=== PATIENT | male | born 1960 | race Caucasian/White ===

== ENCOUNTER → 2021-09-18 15:13 | Outpatient (BNVA) | payer OTHER, MEDICARE, SELFPAY | PROVIDERS: PCP Internal Medicine; Visit Provider Nurse Practitioner Family ==

== ENCOUNTER 2021-09-23 13:06 | Outpatient (REF) | payer OTHER, MEDICARE, SELFPAY ==
[2021-09-23 13:51] LABS: Hematocrit 42.6 % (42.0-52.0); Hemoglobin 13.7 g/dl (14.0-18.0); Mean Corpuscular HGB Conc 32.2 g/dl (31.0-36.0); Mean Corpuscular Hemoglobin 29.2 pg (27.0-33.0); Mean Corpuscular Volume 90.8 fL (80.0-98.0); Mean Platelet Volume 10.8 fL (9.4-12.4); Platelet Count 319 X10*3/uL (160-400); Red Blood Count 4.69 X10*6/uL (4.60-5.80); Red Cell Distribution Width 13.4 % (11.0-16.0)
[2021-09-23 14:33] LABS: Alanine Aminotransferase 65 U/L (0-40); Albumin Level 4.2 g/dL (3.5-5.0); Alkaline Phosphatase 61 U/L (39-117); Anion Gap 9 (12-20); Aspartate Amino Transferase 37 U/L (5-37); Bilirubin Total 0.4 mg/dL (0.0-1.0); Blood Urea Nitrogen 28 mg/dL (9-16); Calcium 9.6 mg/dL (8.4-10.2); Carbon Dioxide 30 mmol/L (22-29); Chloride 103 mmol/L (96-108); Estimated Glomerular Filt Rate > 60; Glucose Random 99 mg/dL (60-115); Potassium 5.4 mmol/L (3.3-5.1); Sodium 137 mmol/L (135-145); Total Protein 6.9 g/dL (6.5-8.0)
== END 2021-09-23 13:07 | disposition home or self-care (01) ==
LOC: HO.LAB 13:06
PROVIDERS: PCP Internal Medicine; Visit Provider Nurse Practitioner Family
DX: Z01.812 Encounter for preprocedural laboratory examination (principal)
CPT/HCPCS: 36415; 80053; 85027

== ENCOUNTER → 2021-10-22 15:45 | Outpatient (BNVA) | payer OTHER, MEDICARE, SELFPAY | PROVIDERS: PCP Internal Medicine; Visit Provider Nurse Practitioner Family ==

== ENCOUNTER 2022-06-17 11:47 | Day surgery (SDC) | payer OTHER, MEDICARE, SELFPAY ==
--- NOTE | 2022-05-19 12:54 | PC.NURSE ---
pt has covid cancelled self
--- NOTE | ~2022-06-17 | FL_ITS ---
EXAMINATION: XR FLUOROSCOPY WITH IMAGES CLINICAL INFORMATION: Pain. Right lumbar RFA. COMPARISON: None. TECHNIQUE: Fluoroscopy performed by Dr. Moshe Villafuerte. Fluoroscopy time: 1.0 minutes. Cumulative Dose: 56.2 mGy. DAP: 14.9 Gycm2. Images: 2. FINDINGS: There are needles/electrodes overlying the right outer L2, L3, and L4 neural foramen. There are mild degenerative changes with vertebral spurring. FL/FL guidance in OR IMPRESSION: Fluoroscopy for pain management procedures.
[2022-06-17 06:56] VITALS: BMI 36.9
--- NOTE | 2022-06-17 11:55 | P.HPSUR_ITS ---
Pre-Procedural Eval Section A Date of Service: 06/17/22 The patient is an INPATIENT: No Changes since office visit: Yes Changes in Medication The History & Physical has been completed within 30 days and I have reviewed it.: No Section B Chief Complaint: Right lumbar L2, L3, L4 Medial Branch Blocks RFA Relevant Family History (Specify if Yes): No Relevant Social History: None Present Medications: see Short Stay Collaborative assessment Medical History: No relevant PMH History of Previous Operations: No relevant previous surgery Allergies: Allergies Allergy/AdvReac Type Severity Reaction Status Date / Time Sulfa (Sulfonamide Allergy Unknown unk Verified 02/19/22 15:41 Antibiotics) Review of Systems Sugical H&P ROS: Negative: Cardiovascular, Respiratory, Neurological, Psychia tric, Hem-Onc, Allergic/Immunologic, Gastrointestinal, Genitourinary, Musculoskeletal, Integumentary, Endocrine and Eyes/Ears/Nose/Throat and Yes, Specify: Constitution (obesity) Exam Surgical H&P Exam: Normal: HEENT, Normal: Heart, Normal: Lungs, Normal: Extremities, Normal: Skin and Normal: Neurological and Significant Findings: Abdomen (enlarged 2 to fat.) Plan Diagnosis/Plan: Unchanged I have reviewed the history and physical and performed a pertinent physical examination on my patient. No changes have occurred unless specified.
[2022-06-17 12:21] VITALS: BP 149/72; PULSE 62; RESP 18; TEMP 36.1; O2SAT 98
[2022-06-17 13:38] VITALS: BP 146/76; PULSE 65; RESP 20; TEMP 36.1; O2SAT 98
--- NOTE | 2022-06-17 13:45 | W.PM.OPN ---
Operative Note Operative Note Date of Service: 06/17/22 Narrative: Radiofrequency ablation of L2-L3 L4 and lateral left medial branches. Informed consent was explained to the patient. All questions were explained and answered.? The patient was taken inside of the operating room where he was positioned prone on the operating table.? Time-out was performed delineating patient's name and date of , correct site, side, the nature of the procedure, patient's allergy, preoperative antibiotic if needed.? All operating room staff was participating in OR time-out procedure.? His lower back was prepped with ChloraPrep and draped with sterile towels.? Sterilely draped C-arm was brought over the operating field and sq picture of L3-L4 and L5 vertebrae was delineated on the screen.? Points of interest were delineated as connection of superior articular process of L3, L4, and L5 on the left with corresponding transverse processes .? The projection of the point of interest to the skin were injected with the small amount of local anesthetic lidocaine 2% 1-1.5 cc.? And after that 18 gauge 145 mm radiofrequency cannulas were driven to the point of interest in tunnel vision fashion under oblique view .? After needles gently contacted the bone at the point of interests the stylets were removed from the needles and electrodes were inserted into the needles.? Electrodes were connected to the radiofrequency machine and testing was performed for the patient's sensory and motor function.? There were no pathological motor response indicating stimulation of somatic nerves.? After that electrodes were removed and each needle was injected with small amount of ropivacaine 0.5% 1-1.5 cc mixed with trace amount of Kenalog.? Upon completion of the injections the electrodes were reinserted and energy of 89 degree centigrade for 90 seconds was applied to each needle 1st on the left side and then on the right.? Upon completion of the energy application the needles were rotated 180? and energy applied with the same temperature and with the same time.? Upon completion of the injections needles were removed and sterile dressings were applied patient was taken outside of the operating room to recovery room which he recovered uneventfully.?
== END 2022-06-17 14:01 | disposition home or self-care (01) ==
PROVIDERS: PCP Internal Medicine; Visit Provider Anesthesiology
PROC: (CPT 64635; principal; 2022-06-17 13:00)
DX: M47.816 Spondylosis without myelopathy or radiculopathy, lumbar region (principal); M62.838 Other muscle spasm; M47.27 Other spondylosis with radiculopathy, lumbosacral region; G83.4 Cauda equina syndrome; Z79.899 Other long term (current) drug therapy; Z88.2 Allergy status to sulfonamides
CPT/HCPCS: 64635; 64636; J3300

== ENCOUNTER 2023-08-18 15:15 | Outpatient (AMB) | payer OTHER, SELFPAY ==
--- NOTE | 2023-08-18 15:17 | A.OFFVIS_ITS ---
Intake Vital Signs 08/18/23 15:19 Height 5 ft 7 in Weight 285 lb BMI 44.6 Blood Pressure Location Lt brachial Position Sitting Respiration 16 Pulse 76 Pulse Source Pulse Oximeter Pulse Oximetry (%) 97 Oxygen Delivery Method Room Air Intake Visit Reasons: Medication Discussion/lvm Allergies Sulfa (Sulfonamide Antibiotics) Allergy (Unknown, Verified 08/18/23 15:21) unk shellfish derived Adverse Reaction (Intermediate, Verified 08/18/23 15:21) rash Medication List - Last Reconciled 08/18/23 by Jenna Drew LPN baclofen 20 mg (2 x 10 mg) PO QPM fluoxetine 10 mg PO DAILY gabapentin 400 mg PO QID 30 days lorazepam 2 mg PO BID HPI HPI Comments History of Present Illness Details Patient presents today for medication refill for baclofen. Patient reports good tolerance and no side effects when taking 20 mg at bedtime and finds decreased muscle spasms in his lower extremities, neck and lower back. He also reports ongoing bilateral knee pain. Unfortunately, knee xray order was cancelled. I will re-order these xrays today prior further steps for his knee pain treatments. Denies any recent cough, cold, infection, fever or other significant changes in medical history since last office visit. PRIOR: Patient presents today via telehealth encounter to assess response to Right L2-L3-L4 MB RFA on 06/17/[address] Villafuerte. Patient reports 70% ongoing pain relief since the procedure with significant improvement in his daily functioning, mobility, and social interactions. He now reports bilateral knee pain with bending and climbing stairs which he attributes to arthritis. Patient reports remote history of cortisone injections with good relief. He is interested to discuss longer term pain relief in the next office visit for physical exam. I will send him for bilateral knee xray. PRIOR: Lucio presents to the office with for evaluation of low back pain. He is accompanied by his . He reports a long history of back pain and is s/p emergency surgery for cauda equina syndrome in 2014, performed by Dr. Cortez. He reports residual bowel/bladder dysfunction as well as neuropathy throughout the lower extremities and radicular pain of the RLE. He is under the care of urology. He also reports at night his legs start flailing and was told by neurosurgery this was neuropathic in nature. He denies any EMG/NCS. He has a sleep study scheduled in attempts to address this. He has a CPAP and is complaint. Most recently, he underwent cervical surgery with Dr. Cortez in 2020. He reports significant weakness of LUE which resolved after surgery but continues to have a stiff, sore neck . He has been under the care of Dr. Tripp at [facility] where has had RFA with significant alleviation in his pain as well as medical management with non-opioid medications. He reports 1-1.5 years of pain relief with the RFA. He reports good relief with his current regimen and is hoping to continue it through this office. He is currently managed on gabapentin 400 mg QID, Baclofen 20 mg BID and Lamictal 100 mg BID, which has been helpful for the past 2-3 year s. He denies any lab work recently to assess CBC/CMP. He reports with this regimen his pain is tolerable and averages 2-3/10. Although he reports if he is active his pain can increase to an 8/10. He also has been working towards weight loss through diet and exercise. He has lost a total of 63 pounds. He denies any recent imaging. [facility] Medical History (Updated 08/18/23 @ 16:28 by EDGARDO Toro) Bilateral knee pain Muscle spasm Cauda equina syndrome with neurogenic bladder Lumbar facet arthropathy Periodic limb movement disorder (PLMD) Neurogenic bladder Spondylosis of lumbosacral spine with radiculopathy Review of Systems Const All systems reviewed & are unremarkable except as noted in HPI and below Physical Exam Vital Signs: Last Vital Signs Pulse 76 08/18/23 15:19 Resp 16 08/18/23 15:19 Pulse Ox 97 08/18/23 15:19 Oxygen Delivery Method Room Air 08/18/23 15:19 BMI result Body Mass Index 44.6 General: Appears afebrile. Alert and oriented. Mood and affect appropriate. Follows and participates in conversation appropriately. Respiratory effort is unlabored. No cough. No nasal discharge. Able to transition from sit to stand unassisted. Ambulates with assistance of cane. Extrem General: Yes capillary refill normal, Yes no clubbing, cyanosis or edema and Yes no calf tenderness Right lower extremity: knee (Anterior global knee pain. Limited ROM due to pain) Details: normal to inspection, tenderness Location: of the patella, of the medial joint line and of the lateral joint line and crepitus; no swelling, no ecchymosis and no unusual warmth Left lower extremity: knee Details: normal to inspection, tenderness Location: of the medial joint line and of the lateral joint line and crepitus; no swelling, no ecchymosis and no unusual warmth Psych Appearance: grossly normal Mental Status: mental status grossly normal Speech and movement: Normal speech and movement present Affect: normal affect Attitude: cooperative Thought process: Normal thought process present Thought content: Normal thought content present, suicidality (none), no hallucinations and No Depressive thoughts present Insight: Good insight present (Psych) Judgement: Good judgement present (Psych) Assessment & Plan Assessment & Plan (1) Bilateral knee pain: Code(s): M25.561 - Pain in right knee; M25.562 - Pain in left knee (2) Lumbar facet arthropathy: Code(s): M47.816 - Spondylosis without myelopathy or radiculopathy, lumbar region (3) Spondylosis of lumbosacral spine with radiculopathy: Code(s): M47.27 - Other spondylosis with radiculopathy, lumbosacral region (4) Muscle spasm: Code(s): M62.838 - Other muscle spasm Plan 1. Refills provided for baclofen and gabapentin. 2. Will reorder bilateral knee x-rays to assess degree of arthritis. Patient reports remote history of cortisone injections with good relief. He is interested to discuss longer term pain relief modalities after knee x-rays are completed. All questions were answered and patient agreed with the plan. Follow up for xray results and sooner if needed. Orders: Orders XR knee RT 3V Today M25.561 - Pain in right knee, M25.562 - Pain in left knee XR knee LT 3V Today M25.561 - Pain in right knee, M25.562 - Pain in left knee Medications: Refilled baclofen 20 mg (2 x 10 mg) PO QPM 60 tabs 4RF gabapentin 400 mg PO QID 30 days 120 caps 4RF pain M25.561 - Pain in right knee, M25.562 - Pain in left knee, M47.27 - Other spondylosis with radiculopathy, lumbosacral region, M47.816 - Spondylosis without myelopathy or radiculopathy, lumbar region Coding Level of Care Code Est Pt Level 4 (69778) Diagnoses Bilateral knee pain M25.561; M25.562 Lumbar facet arthropathy M47.816 Spondylosis of lumbosacral spine with radiculopathy M47.27 Muscle spasm M62.838
[2023-08-18 15:19] VITALS: PULSE 76; RESP 16; O2SAT 97; BMI 44.6
== END 2023-08-18 16:00 | disposition home or self-care (01) ==
PROVIDERS: PCP Internal Medicine; Visit Provider Nurse Practitioner Family
DX: M25.561 Pain in right knee (principal); M25.562 Pain in left knee; M47.816 Spondylosis without myelopathy or radiculopathy, lumbar region; M47.27 Other spondylosis with radiculopathy, lumbosacral region; M62.838 Other muscle spasm
CPT/HCPCS: 99214

== ENCOUNTER 2023-08-18 15:15 | Outpatient (REF) | payer OTHER, MEDICARE, SELFPAY | END 2023-08-18 15:16 | disposition home or self-care (01) | LOC: HO.XRAY 15:15 | PROVIDERS: PCP Internal Medicine; Visit Provider Nurse Practitioner Family | DX: M25.561 Pain in right knee (principal); M25.562 Pain in left knee; M47.816 Spondylosis without myelopathy or radiculopathy, lumbar region; M47.27 Other spondylosis with radiculopathy, lumbosacral region; M62.838 Other muscle spasm | CPT/HCPCS: 73562 ==

== ENCOUNTER 2024-09-19 15:07 | Outpatient (AMB) | payer OTHER, SELFPAY ==
--- NOTE | 2024-09-19 15:09 | A.OFFVIS_ITS ---
Vital Signs 3 09/19/24 15:12 Height 5 ft 7 in Weight 261 lb BMI 40.9 BP 137/75 Blood Pressure Location Lt brachial Position Sitting Respiration 18 Pulse 74 Pulse Source Pulse Oximeter Pulse Oximetry (%) 98 Oxygen Delivery Method Room Air Intake Visit Reasons: FU for medication refill Allergies Sulfa (Sulfonamide Antibiotics) Allergy (Unknown, Verified 08/18/23 15:21) unk shellfish derived Adverse Reaction (Intermediate, Verified 08/18/23 15:21) rash Medication List - Last Reconciled 09/19/24 by EDGARDO Toro baclofen 20 mg (2 x 10 mg) PO QPM fluoxetine 10 mg PO DAILY gabapentin 400 mg PO QID 30 days lorazepam 2 mg PO BID semaglutide (weight loss) (Wegovy) 1 mg subcut QWEEK HPI Comments Details: Patient presents today for follow up and for medication refill for baclofen and gabapentin. He was last seen in our office last year. Reports chronic low back pain and bilateral knee pain which have been managed conservatively and current medications provide him adequate relief without any side effects. He has started Wegovy injections last year and last 24 lbs since last office visit. He continues diet and exercise. Patient reports remote history of cortisone injections with good relief. He states his pain generators have been well managed without interventional treatments at this time. Denies any recent cough, cold, infection, fever or any other significant changes in medical history since last office visit. Past Procedures: 06/17/22: Right L2-L3-L3 Medial Branch RFA-70% pain relief for ~2 years PRIOR: Lucio presents to the office with for evaluation of low back pain. He is accompanied by his . He reports a long history of back pain and is s/p emergency surgery for cauda equina syndrome in 2014, performed by Dr. Cortez. He reports residual bowel/bladder dysfunction as well as neuropathy throughout the lower extremities and radicular pain of the RLE. He is under the care of urology. He also reports at night his legs start flailing and was told by neurosurgery this was neuropathic in nature. He denies any EMG/NCS. He has a sleep study scheduled in attempts to address this. He has a CPAP and is complaint. Most recently, he underwent cervical surgery with Dr. Cortez in 2019. He reports significant weakness of LUE which resolved after surgery but continues to have a stiff, sore neck . He has been under the care of Dr. Tripp at [facility] where has had RFA with significant alleviation in his pain as well as medical management with non-opioid medications. He reports 1-1.5 years of pain relief with the RFA. He reports good relief with his current regimen and is hoping to continue it through this office. He is currently managed on gabapentin 400 mg QID, Baclofen 20 mg BID and Lamictal 100 mg BID, which has been helpful for the past 2-3 years. He denies any lab work recently to assess CBC/CMP. He reports with this regimen his pain is tolerable and averages 2-3/10. Although he reports if he is active his pain can increase to an 8/10. He also has been working towards weight loss through diet and exercise. He has lost a total of 63 pounds. He denies any recent imaging. [facility] Medical History Bilateral knee pain Muscle spasm Cauda equina syndrome with neurogenic bladder Lumbar facet arthropathy Periodic limb movement disorder (PLMD) Neurogenic bladder Spondylosis of lumbosacral spine with radiculopathy Review of Systems Const All systems reviewed & are unremarkable except as noted in HPI and below Physical Exam Vital Signs: Last Vital Signs Pulse 74 09/19/24 15:12 Resp 18 09/19/24 15:12 BP 137/75 09/19/24 15:12 Pulse Ox 98 09/19/24 15:12 Oxygen Delivery Method Room Air 09/19/24 15:12 BMI result Body Mass Index 40.9 General: Appears afebrile. Alert and oriented. Mood and affect appropriate. Follows and participates in conversation appropriately. Respiratory effort is unlabored. No cough. Able to transition from sit to stand unassisted. Ambulates with assistance of cane. Extrem General: Yes capillary refill normal, Yes no clubbing, cyanosis or edema and Yes no calf tenderness Results Reviewed Results Reviewed: XR BILATERAL KNEES 08/18/23 CLINICAL INFORMATION: Bilateral knee pain. FINDINGS: LEFT KNEE: Trace joint effusion present. Mild degenerative changes with hypertrophic change in the patellofemoral joint. Moderate to marked medial joint space narrowing with hypertrophic change. RIGHT KNEE: No significant joint effusion. Mild degenerative changes in the patellofemoral joint. Mild medial joint space narrowing. IMPRESSION: [id number] degenerative changes in the bilateral knees, left greater than right. Assessment & Plan Assessment & Plan (1) Muscle spasm: Code(s): M62.838 - Other muscle spasm Category: Medical (2) Bilateral knee pain: Code(s): M25.561 - Pain in right knee; M25.562 - Pain in left knee Category: Medical (3) Lumbar facet arthropathy: Code(s): M47.816 - Spondylosis without myelopathy or radiculopathy, lumbar region Category: Medical (4) Osteoarthritis of knees, bilateral: Code(s): M17.0 - Bilateral primary osteoarthritis of knee Category: Medical Plan 1. Refills provided for baclofen and gabapentin. Continue to monitor for any side effects. 2. Discussed bilateral knee xrays noted for [id number] degenerative changes in the bilateral knees, left greater than right. Patient reports bilateral knee pain has been minimal and well managed with current medication regime, activity modifications, weight loss, diet and exercise. All questions were answered and patient agreed with the plan. Follow up as needed. Medications: Refilled 2 baclofen 20 mg (2 x 10 mg) PO QPM 180 tabs 6RF muscle spasms M62.838 - Other muscle spasm gabapentin 400 mg PO QID 30 days 120 caps 6RF pain M25.561 - Pain in right knee, M25.562 - Pain in left knee, M47.27 - Other spondylosis with radiculopathy, lumbosacral region, M47.816 - Spondylosis without myelopathy or radiculopathy, lumbar region Coding Level of Care Code Est Pt Level 4 (90978) Complex EM visit Add On G2211 Diagnoses Muscle spasm M62.838 Bilateral knee pain M25.561; M25.562 Lumbar facet arthropathy M47.816 Osteoarthritis of knees, bilateral M17.0
[2024-09-19 15:12] VITALS: BP 137/75; PULSE 74; RESP 18; O2SAT 98; BMI 40.9
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
--- OUTSIDE RECORDS SUMMARY | 2024-09-19 16:37 | XMS_ITS | Data Portability ---
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 Plan of Treatment Reminders Order Date Submit Date Provider Last Modified By Organization Details Last Modified Time Details Appointments None recorded. Lab None recorded. Referral None recorded. Procedures medial branch block, lumbar (PROC) - Rt L2,3,4 FMBB with 2 % lidocaine. 2020 021 [facility], [address] [place] [address], [address], 2 05:00:44 lumbar radiofreque ncy lesioning (PROC) 2020 021 [facility], [address] [facility], [address], [address], 2 05:00:45 Surgeries None recorded. Imaging None recorded. Medication Orders baclofen 10 mg tablet 2020 021 [facility] #[id number], [address] [place], [address], 15:26:15 gabapentin 400 mg capsule 2020 021 [facility] #1157, [address] [place], [address], 1 15:26:15 Lamictal 100 mg tablet 2020 021 dmousad [facility]armacy #1157, [address] [place], [address], 15:45:09 baclofen 10 mg tablet 2020 021 [facility] #1157, [address] [place], [address], 16:04:18 gabapentin 400 mg capsule 2020 [facility] #1157, [address] [place], [address], 16:04:16 Lamictal 100 mg tablet 2020 021 [facility]1157, [address] [place], [address], 16:04:16 Patient Targets Encounter Date Encounter Id Patient Goals Patient Target Last Modified By Organization Details Last Modified Time 02/01/2021 [id number] long-term goal o f Pain Scale Not available Not available Not available long-term goal o f Weight 160 lbs Not available Not available Not available decrease painincrease activitiesimprove quality of lifeweight reduction [email or web address] Not available 02/01/2021 16:09:07 03/22/2021 [id number] 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 Not available Not available Not available long-term goal o f Weight 155 lbs Not available Not available Not available decrease painincrease activitiesimprove quality of lifeweight reduction [email or web address] Not available 03/22/2021 15:50:41 06/14/2021 [id number] 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 Not available Not available Not available 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 goal o f Weight 155 lbs Not available Not available Not available decrease painincrease activitiesimprove quality of lifeweight reduction dmousad Not available 06/14/2021 16:46:11 Patient Instructions Encounter Date Encounter Id Patient Instructions Last Modified By Organization Details Last Modified Time 02/01/2021 [id number] Given [email or web address] Not available 02/01 16:12:14 Given dmousad Not available 2020 16:12:19 03/22/2021 [id number] Given dmousad Not available 03/22 15:50:48 Given dmousad Not available 2020 15:50:52 06/14/2021 [id number] Given dmousad Not available 06/14 16:46:16 Given dmousad Not available 2020 16:46:21 Reason for Referral None Reported. Problems Name Problem SNOMED Code Status Onset Date Resolution Date Notes Provider Name and Address Organization Details Recorded Time Cauda equina syndrome 758697732 Active 2018 with neurogenic bladder Not Available [facility] 23:09:01 Urinary incontine nce 413697218 Active 2018 Not Available [facility] 23:09:01 Obsessive -compulsi ve disorder 239427166 Active 2018 Not Available [facility] 23:09:01 Neuropath ic pain 628148197 Active 2018 Not Available [facility] 1 23:09:01 Morbid obesity 318822319 Active 2018 Not Available [facility] 1 23:09:01 Apraxia 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 Procedures Surgical History Date Name Laterality Status Provider Name and Address Organization Details Recorded Time 04/17/20 21 Lumbar Facet RF Rhizotomy unber fluroscopy completed Hardik Tripp MD [address] [place] [address], [phone], [facility], [facility] 04/17/2021 15:55:13 03/01/20 21 Lumbar Facet MBB with 2% Lidocaine under fluroscopy completed Hardik Tripp MD [address] [place] [address], [phone], [facility], [facility] 03/01/2021 18:56:52 08/13/20 19 Lumbar Facet RF Rhizotomy unber fluroscopy completed Hardik Tripp MD [address] [place] [address], [phone], [facility], [facility] 08/13/2019 18:15:03 07/21/20 19 Lumbar Facet MBB with 2% Lidocaine under fluroscopy completed Hardik Tripp MD [address] [place] [address],[address], [place], [phone], [facility], [facility] 07/21/2019 17:23:58 Unlisted px femur/knee completed [facility], [facility] 05/14/2019 13:55:52 Appendectomy completed [facility], [facility] 05/14/2019 13:56:45 tonsillectomy completed [facility], [facility] 05/14/2019 13:57:01 procedure on nose completed [facility], [facility] 05/14/2019 13:57:28 procedure on spine completed [facility], [facility] 05/14/2019 13:57:39 Imaging Results None recorded. Procedure Notes None recorded. Medical Equipment None Reported. Allergies Allergen ID Allergen Name Allergen Category Reaction Reaction Severity Criticality Documentation Date Start Date Code Code System Note Provider Name and Address Organization Details Recorded Time 733 Substance with sulfonami de structure and antibacte rial mechanism of action (substanc e) medicatio n Not available Not available Not available 05/03/2019 31223 8003 SNOMED aquilino saleem [facility], [facility] 9 14:34:08 734 shellfish derived food,medi cation Not available Not available Not available 05/03/2019 32584 UNK aquilino saleem [facility], [facility] 9 14:34:18 Medications Name Sig Start Date Stop Date Status Note LastModified by Organization Details LastModified Time cyclobenzap rine 10 mg tablet active Not Available Not Available Not Available amoxicillin 500 mg capsule 05/14 completed Not Available Not Available Not Available lamotrigine 150 mg tablet 06/14 completed Not Available Not Available Not Available lamotrigine 200 mg tablet 05/14 completed Not Available Not Available Not Available tizanidine 4 mg tablet active Not Available Not Available Not Available hydrocodone 5 mg-acetamin ophen 325 mg tablet 05/14 completed Not Available Not Available Not Available gabapentin 400 mg capsule Take 1 capsule 4 times a day by oral route as directed for 28 days. active Not Available Not Available No t Available ropinirole 0.25 mg tablet 05/14 completed Not Available Not Available Not Available lorazepam 2 mg tablet TAKE 1 TABLET BY MOUTH TWICE A DAY active Not Available Not Available No t Available baclofen 10 mg tablet Take 2 tablets every day by oral route in the evening for 28 days. 2021 active Not Available Not Available Not Avai lable cephalexin 500 mg capsule 06/14 completed Not Available Not Available Not Available fluoxetine 20 mg tablet TAKE 1 TABLET BY MOUTH EVERY DAY active Not Available Not Available No t Available Lamictal 100 mg tablet Take 1 tablet twice a day by oral route as directed for 28 days. 2021 active Not Available Not Available Not Avai lable gabapentin 300 mg capsule 02/01 completed Not Available Not Available Not Available methylpredn isolone 4 mg tablets in a dose pack 06/14 completed Not Available Not Available Not Available ketoconazol e 2 % topical cream active Not Available Not Available Not Available naproxen 500 mg tablet 05/14 completed Not Available Not Available Not Available oxycodone 5 mg tablet 02/01 completed Not Available Not Available Not Available B-12 1,000 mcg tablet Take by oral route. active Not Available Not Available No t Available calcium active Not Available Not Avail able Not Available vitamin E active Not Available Not Kelsie ilable Not Available Advil active Not Available Not Availa ble Not Available Tylenol active Not Available Not Avail able Not Available [place] 3 active Not Available Not Avail able Not Available diclofenac 1 % topical gel APPLY 2 GRAMS TO THE AFFECTED AREA(S) BY TOPICAL ROUTE 4 TIMES PER DAY active Not Available Not Available No t Available Vitamin D-3 with Aloe 120 mg-1,000 unit-10 mg tablet Take by oral route. active Not Available Not Available No t Available Super B Maxi Complex active Not Available Not Available Not Available Triple Magnesium Complex active Not Available Not Available Not Available Shingrix (PF) 50 mcg/0.5 mL intramuscul ar suspension, kit active Not Available Not Available Not Available Flucelvax Quad (PF) 60 mcg (15 mcg x 4)/0.5 mL IM syringe 05/14 completed Not Available Not Available Not Available Fluzone Quad (PF) 60 mcg (15 mcg x 4)/0.5 mL IM syringe 02/01 completed Not Available Not Available Not Available Fluzone Quad (PF) 60 mcg (15 mcg x 4)/0.5 mL IM syringe [facility]ARMACY [facility] 02/01 completed Not Available Not Available Not Available Flublok Quad (PF) 180 mcg (45 mcg x 4)/0.5 mL IM syringe 02/01 completed Not Available Not Available Not Available Vitals Date Recorded Body height Body temperature Provider N radha and Address Organization Details Last Updated DateTime 02/01/2021 170.18 cm 97.5 [degF] [facility] 02/01/2021 15:42:07 Date Recorded Heart rate Respiratory rate Heart rate Oxygen saturation Oxygen saturation in Arterial blood by Pulse oximetry Body mass index (BMI) Body weight Systolic blood pressure Diastolic blood pressure Provider Name and Address Organization Details Last Updated DateTime 1 84 /min 18 /min 84 /min 96 % 96 % 48.3 kg/m2 656828. 25 g 132 mm[Hg] 83 mm[Hg] Alanviktor johnson [facility], [facility] 1 15:46:01 Date Recorded Body height Body temperature Provider N radha and Address Organization Details Last Updated DateTime 03/01/2021 170.18 cm 98.5 [degF] [facility], [facility] 03/01/2021 13:21:42 Date Recorded Body height Body temperature Provider N radha and Address Organization Details Last Updated DateTime 03/22/2021 170.18 cm 96.7 [degF] [facility], [facility] 03/22/2021 15:06:31 Date Recorded Body mass index (BMI) Body weight Heart rate Respiratory rate Heart rate Oxygen saturation Oxygen saturation in Arterial blood by Pulse oximetry Systolic blood pressure Diastolic blood pressure Provider Name and Address Organization Details Last Updated DateTime 1 45 kg/m2 153992. 01 g 75 /min 18 /min 75 /min 94 % 94 % 117 mm[Hg] 73 mm[Hg] Alan MalikLeoncio alex [facility], [facility] 1 15:11:37 Date Recorded Body height Body temperature Provider N radha and Address Organization Details Last Updated DateTime 04/17/2021 170.18 cm 98.1 [degF] Alan KingClementina [facility], [facility] 04/17/2021 13:57:11 Date Recorded Body height Body temperature Provider N radha and Address Organization Details Last Updated DateTime 06/14/2021 170.18 cm 98 [degF] Stacey Pryor [facility], [facility] 06/14/2021 15:43:32 Date Recorded Body mass index (BMI) Body weight Respiratory rate Heart rate Heart rate Oxygen saturation Oxygen saturation in Arterial blood by Pulse oximetry Systolic blood pressure Diastolic blood pressure Provider Name and Address Organization Details Last Updated DateTime 1 40.3 kg/m2 539544. 24 g 18 /min 68 /min 68 /min 95 % 95 % 135 mm[Hg] 79 mm[Hg] cinthia donaldson [facility], [facility] 1 15:51:03 Social History Question Answer Notes LastModified by Organizat ion Details LastModified Time Tobacco Smoking Status Former Smoker Not Available [facility] 06/19/2020 04:17:37 Do You Or Have You Ever Used E-cigarettes Or Vape? Former User Of Electronic Cigarettes [id number] Information not available 06/19/2020 Do You Or Have You Ever Used Smokeless Tobacco? Former Smokeless Tobacco User [id number] Information not available 06/19/2020 How Much Tobacco Do You Smoke? 1 PPD [id number] Information not available 06/19/2020 How Many Years Have You Smoked Tobacco? 6 [id number] Information not available 06/19/2020 Sex: Unknown Functional Status None recorded. Mental Status None recorded. Family History Nothing Reported. Medical History Condition Response Coronary Artery Disease N Gout N Head Trauma/Injury Y Hernia N Thyroid Problems N Depression Y COPD N Anemia N Ulcers N Heart Attack (NV) N Diabetes N Anxiety Disorder Y Bleeding Disorder N Arthritis Y Tuberculosis N AIDS/HIV N Acid Reflux (GERD) N Cancer N Stroke N Asthma N Substance Abuse N Back Injury Y High Cholesterol N Hepatitis N Liver Disease N Heart Disease N Fibromyalgia N Headaches Y Hypertension N Osteoporosis N Kidney Disease N Past Encounters Encounter ID Performer Location Encounter Start Date Encounter Closed Date Diagnosis/Indication Diagnosis SNOMED-CT Code Diagnosis ICD10 Code Diagnosis Note 1952 Hardik Tripp MD Main Office [address] [place] [phone] 05/14/2019 13:17:39 05/15/2019 18:59:56 Long-term drug therapy 090886463 Z79.818 Lumbar radiculopathy 128 655465 M54.16 Spasm of back muscles 20 7254170 M62.830 Neuropathy 767237684 G62 .9 plan if possible to change it to Topamax in the future. Lumbosacra l radiculopathy 8120782 M54.17 MRI ordered, wating for the result. He will bring the MRI done 2014 and also the surgery and procedure notes. Continue Gabapentin and Lamotrigin e. Degenerati on of lumbar intervertebral disc 12381465 M51.36 Weight reduction HEP Obesity 875952595 E66.9 dietarian consult. weight reduction. [id number] Hardik Tripp MD Main Office [address] [place] [phone] 4 06/04/2019 13:57:52 06/04/2019 16:55:06 Lumbar radiculopathy 000663379 M54.16 HEP Weight reduction Spasm of back muscles 20 7555937 M62.830 HEP Neuropathy 328982263 G62 .9 plan if possible to change it to Topamax in the future. Lumbosacra l radiculopathy 8015121 M54.17 He will bring the surgery and procedure notes. Continue Gabapentin and Lamotrigin e. Degenerati on of lumbar intervertebral disc 35392473 M51.36 Weight reduction HEP Obesity 002232197 E66.9 dietarian consult. weight reduction. Lumbosacra l spondylosis without myelopathy 41422682 M47.817 Plan for right L2,3,4 FMBB with 2 % Lidocaine as a dxic test to confirm the dx of right lumbar facet sx. [id number] Hardik Tripp MD Main Office [address] [place] [id number] 4 07/02/2019 13:45:42 07/02/2019 16:38:11 Lumbar radiculopathy 890461201 M54.16 HEP Weight reduction Spasm of back muscles 20 6920879 M62.830 HEP Neuropathy 802487406 G62 .9 plan if possible to change it to Topamax in the future. Lumbosacra l radiculopathy 8968618 M54.17 He will bring the surgery and procedure notes. Continue Gabapentin and Lamotrigin e. Degenerati on of lumbar intervertebral disc 44844228 M51.36 Weight reduction HEP Obesity 641713452 E66.9 dietarian consult. weight reduction. Lumbosacra l spondylosis without myelopathy 19307292 M47.817 Plan for right L2,3,4 FMBB with 2 % Lidocaine as a dxic test to confirm the dx of right lumbar facet sx. [id number] Hardik Tripp MD Main Office [address] [place] [id number] 4 07/21/2019 17:15:40 07/21/2019 17:27:35 Lumbosacral spondylosis without myelopathy 30708639 M47.817 right L2,3,4 FMBB with 2 % Lidocaine as a dxic test to confirm the dx of right lumbar facet sx. [id number] Hardik Tripp MD Main Office [address] [place] [id number] 4 08/13/2019 11:09:46 08/13/2019 18:28:10 Lumbar radiculopathy 073416951 M54.16 HEP Weight reduction Spasm of back muscles 20 1184461 M62.830 HEP Neuropathy 985973503 G62 .9 plan if possible to change it to Topamax in the future. Lumbosacra l radiculopathy 6106930 M54.17 He will bring the surgery and procedure notes. Continue Gabapentin and Lamotrigin e. Degenerati on of lumbar intervertebral disc 78331797 M51.36 Weight reduction HEP Obesity 197606177 E66.9 dietarian consult. weight reduction. Lumbosacra l spondylosis without myelopathy 56169970 M47.817 right L2,3,4 RFR. Myofascial pain 27558064 9 M79.10 [id number] Hardik Tripp MD Main Office [address] [place] [address],[address] [place] [address] 09/24/2019 14:45:34 09/24/2019 17:38:57 Lumbar radiculopathy 342130517 M54.16 HEP Weight reduction Spasm of back muscles 20 5032627 M62.830 HEP Neuropathy 536451898 G62 .9 plan if possible to change it to Topamax in the future. Lumbosacra l radiculopathy 4343535 M54.17 Continue Gabapentin and Lamotrigin e. Degenerati on of lumbar intervertebral disc 13339226 M51.36 Weight reduction HEP Obesity 658199782 E66.9 dietarian consult. weight reduction. Lumbosacra l spondylosis without myelopathy 99908607 M47.817 HEP Myofascial pain 31439274 9 M79.10 HEP [id number] Hardik Tripp MD telemedic [address] [address] 11/26/2019 13:00:58 11/26/2019 13:28:42 Lumbar radiculopathy 646832882 M54.16 HEP Weight reduction Spasm of back muscles 20 9838731 M62.830 HEP Neuropathy 067045263 G62 .9 plan if possible to change it to Topamax in the future. Lumbosacra l radiculopathy 7388651 M54.17 Continue Gabapentin and Lamotrigin e. Degenerati on of lumbar intervertebral disc 98239311 M51.36 Weight reduction HEP Obesity 013517697 E66.9 dietarian consult. weight reduction. Lumbosacra l spondylosis without myelopathy 02662419 M47.817 HEP Cervical radiculopathy 84169752 M54.12 Plan to ask his PCP to order C-MRI . [id number] Hardik Tripp MD [facility] [address] [address] 02/24/2020 10:06:23 02/24/2020 12:35:38 Lumbar radiculopathy 693696182 M54.16 HEP Weight reduction Spasm of back muscles 20 5046690 M62.830 HEP Neuropathy 039688173 G62 .9 plan if possible to change it to Topamax in the future. Lumbosacra l radiculopathy 4654471 M54.17 Continue Gabapentin and Lamotrigin e. Degenerati on of lumbar intervertebral disc 91168732 M51.36 Weight reduction HEP Obesity 144379786 E66.9 dietarian consult. weight reduction. Lumbosacra l spondylosis without myelopathy 09049649 M47.817 HEP Cervical radiculopathy 81168961 M54.12 F/u with the neuro. [id number] Hardik Tripp MD Main Office [address] [place] [id number] 4 06/02/2020 13:37:53 06/02/2020 14:03:44 Lumbar radiculopathy 852776212 M54.16 HEP Weight reduction Spasm of back muscles 20 4439017 M62.830 HEP Neuropathy 203070923 G62 .9 plan if possible to change it to Topamax in the future. Lumbosacra l radiculopathy 4515527 M54.17 Continue Gabapentin and Lamotrigin e. Degenerati on of lumbar intervertebral disc 10532380 M51.36 Weight reduction HEP Obesity 053940992 E66.9 dietarian consult. weight reduction. Lumbosacra l spondylosis without myelopathy 77276787 M47.817 HEP repeat RFR in the future. [id number] Hardik Tripp MD Main Office [address] [place] [id number] 4 09/08/2020 13:29:18 09/08/2020 13:57:45 Spasm of back muscles 078813139 M62.830 HEP Lumbar radiculopathy 128 923100 M54.16 HEP Weight reduction Lumbosacra l radiculopathy 9190037 M54.17 Continue Gabapentin and Lamotrigin e. I titrated up the gabapentin to 4/day as he has increased paresthesi a of both LEs. [id number] Hardik Tripp MD Main Office [address] [place] [address] 4 12/01/2020 13:12:24 12/01/2020 13:33:58 Spasm of back muscles 754624183 M62.830 HEP Lumbar radiculopathy 128 M54.16 HEP Weight reduction Lumbosacra l radiculopathy 0105170 M54.17 Continue Gabapentin and Lamotrigin e. I titrated up the gabapentin to 4/day as he has increased paresthesi a of both LEs. Lumbosacra l spondylosis without myelopathy 92756933 M47.817 HEP repeat RFR in the future. [id number] Hardik Tripp MD Main Office [address] [place] [address] 4 02/01/2021 15:37:56 02/01/2021 16:14:06 Lumbosacral radiculopathy 6026119 M54.17 Continue Gabapentin and Lamotrigin e. I titrated up the gabapentin to 4/day as he has increased paresthesi a of both LEs. Lumbar radiculopathy 128 M54.16 HEP Weight reduction Spasm of back muscles 20 6563869 M62.830 HEPcontinu e baclofen. Lumbosacra l spondylosis without myelopathy 24810782 M47.817 HEPRt L2,3,4 FMBB with 2 % lidocaine as a dxic test to confirm the dx of right lumbar facet sx. [id number] Hardik Tripp MD Main Office [address] [place] [id number] 4 03/01/2021 13:18:44 03/01/2021 18:58:39 Lumbosacral spondylosis without myelopathy 87937463 M47.817 HEPRt L2,3,4 FMBB with 2 % lidocaine as a dxic test to confirm the dx of right lumbar facet sx. [id number] Hardik Tripp MD Main Office [address] [place] [address] 4 03/22/2021 15:05:34 03/22/2021 15:52:09 Lumbosacral radiculopathy 1855873 M54.17 Continue Gabapentin and Lamotrigin e. I titrated up the gabapentin to 4/day as he has increased paresthesi a of both LEs. Spasm of back muscles 20 1665941 M62.830 HEP Lumbosacra l spondylosis without myelopathy 61387568 M47.817 HEPRt L2,3,4 FMBB with 2 % lidocaine as a dxic test to confirm the dx of right lumbar facet sx. Lumbar post-laminectomy syndrome 301842857 M96[place]1 [place] [id number] Hardik Tripp MD Main Office [address] [facility],[address] [address] 04/17/2021 13:56:23 04/17/2021 15:57:40 Lumbosacral spondylosis without myelopathy 30782480 M47.817 HEPRt L2,3,4 RFR. [id number] Hardik Tripp MD Main Office [address] [place] [address],[address] [address] 06/14/2021 15:42:46 06/14/2021 16:47:45 Lumbosacral spondylosis without myelopathy 08179477 M47.817 HEP Lumbosacra l radiculopathy 7520235 M54.17 Continue Gabapentin and Lamotrigin e. I titrated up the gabapentin to 4/day as he has increased paresthesi a of both LEs. Lumbar post-laminectomy syndrome 791563560 M96.1 Weight reductionH EP Spasm of back muscles 20 4448476 M62.830 HEP Health Concerns Section Related Observation LastModified by Organization Detai ls LastModified Time None Recorded Concern Status LastModified by Organization Details LastModified Time None Recorded Advance Directives Directive None Recorded Payers Encounter Date Sequence Insurance Name Policy Number Policy Degroot Covered Member ID Degroot Member ID Guarantor Name 02/01/2021 1 [facility] [facility] ([place]) [id number] Lucio Hansen [id number] Lucio Hansen 02/01/2021 2 [place] [employer] Lucio Hansen Jr [id number] Lucio Hansen 03/01/2021 1 [employer] (POS) [id number] Lucio Hansen [id number] Lucio Hansen 03/01/2021 2 [place] [employer] Lucio Hansen Jr [id number] Lucio Hansen 03/22/2021 1 [facility] [employer] [facility] (POS) [id number] Lucio Hansen [id number] Lucio Escotonathanshonda 03/22/2021 2 [place] [facility] Lucio Hansen Jr [id number] Lucio Escotonathanshonda 04/17/2021 1 [facility] (POS) [id number] Lucio Hansen [id number] Lucio Escotonathanshonda 04/17/2021 2 [place] [facility] Lucio Hansen Jr [id number] Lucio Dsouza Jr Feleciashonda 06/14/2021 1 [facility] (POS) [id number] Lucio Hansen [id number] Lucio Escotonathanshonda 06/14/2021 2 MEDICARE B-MI: [facility] Lucio Hansen Jr [id number] Lucio Escotonathanshonda Notes Date Note Type Note Provider Name and Address Organization Details Recorded Time 02/01/2021 text/html Back PainReporte d bypatient.Location:l umbar Quality:sharp;tingli ng;dull;stiffness Severity:improving;p ain level 4-8/10 Duration:chronic Alleviating Factors:rest Aggravating Factors:movement/pos itioning; twisting; flexing back; extending back; worse at night Associated Symptoms:numbness of the legs/feet;tingling Prior Imaging:MRI 58 years old RH male with h/o LBP for 20 years which was severe in the last 10 years, s/p cauda equina syndrome 2014, s/p emergency back surgery with fusion, s/p Interventional back procedure with good relief of pain, no note about it with him, no recent MRI with him today. He presented today c/on LBP R>L, deep aching, constant, rated as 4-8/10 VAS, radiates to the right LE with occasional paresthesia to the right leg. He had cervical fusion surgery on 05/01 20 with good improvement of left arm radicular pain. He is using marijuana which helps hime as he sated ease his pain and relax him and makes him more functioning. 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 He had right L2, 3 and L4 RFR on 07/21/19 with 70 relief of right LBP, He stated that now he can walk independently. He continues conservative treatment and exercises recommended by Britni for te last 6 months without relief of his LBP. Hardik Tripp MD [address] [facility] [address], [place], [address], [facility], [facility] 02/01/2021 16:13:50 03/22/2021 text/html Back PainReporte d bypatient.Location:l umbar Quality:sharp;tingli ng;dull;stiffness Severity:improving;p ain level 3-8/10 Duration:chronic Alleviating Factors:rest Aggravating Factors:movement/pos itioning; twisting; flexing back; extending back; worse at night Associated Symptoms:numbness of the legs/feet;tingling Prior Imaging:MRI 58 years old RH male with h/o LBP for 20 years which was severe in the last 10 years, s/p cauda equina syndrome 2014, s/p emergency back surgery with fusion, s/p Interventional back procedure with good relief of pain, no note about it with him, no recent MRI with him today. He presented today c/on LBP R>L, deep aching, constant, rated as 3-8/10 VAS, radiates to the right LE with occasional paresthesia to the right leg. He had cervical fusion surgery on 05/01 20 with good improvement of left arm radicular pain. He is using marijuana which helps him as he sated ease his pain and relax him and makes him more functioning. 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 He had right L2, 3 and L4 RFR on 07/21/19 with 70 relief of right LBP, He stated that now he can walk independently.He had right L2,3 and 4 FMBB with 2 % lidocaine done in 03/01/21 with 100 % relief of right LBP for 2 days with increased function. He continues conservative treatment and exercises recommended by Britni for te last 6 months without relief of his LBP. Hardik Tripp MD [address] [facility] [address], [place], [address], [facility], [facility] 03/22/2021 15:51:39 06/14/2021 text/html Back PainReporte d bypatient.Location:l umbar Quality:sharp;tingli ng;dull;stiffness Severity:improving;p ain level 2-6/10 Duration:chronic Alleviating Factors:rest Aggravating Factors:movement/pos itioning; twisting; flexing back; extending back; worse at night Associated Symptoms:numbness of the legs/feet;tingling Prior Imaging:MRI 58 years old RH male with h/o LBP for 20 years which was severe in the last 10 years, s/p cauda equina syndrome 2014, s/p emergency back surgery with fusion, s/p Interventional back procedure with good relief of pain, no note about it with him, no recent MRI with him today. He presented today c/on LBP, deep aching, constant, rated as 2-6/10 VAS, radiates to the right LE with occasional paresthesia to the right leg. He had cervical fusion surgery on 05/01 20 with good improvement of left arm radicular pain. He is using marijuana which helps him as he stated to ease his pain and relax him and makes him more functioning. 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 He had right L2,3 and 4 RFR done in 04/17/2021 with 75% relief of the right lower back pain with increased function. He continues conservative treatment and exercises recommended by Britni for te last 6 months without relief of his LBP. Hardik Tripp MD [address] [place] [address],[address], [place], [address], [facility], [facility] 06/14/2021 16:47:30
== END 2024-09-19 15:19 | disposition home or self-care (01) ==
PROVIDERS: PCP Internal Medicine; Visit Provider Nurse Practitioner Family
DX: M62.838 Other muscle spasm (principal); M25.561 Pain in right knee; M25.562 Pain in left knee; M47.816 Spondylosis without myelopathy or radiculopathy, lumbar region; M17.0 Bilateral primary osteoarthritis of knee
CPT/HCPCS: 99214